=== PATIENT | female | born 1965 | race Caucasian/White ===

== ENCOUNTER → 2019-05-25 | Outpatient (CLI) | payer OTHER | LOC: CAT 09:12 | DX: E27.9 Disorder of adrenal gland, unspecified (principal); J98.11 Atelectasis; N28.1 Cyst of kidney, acquired; M51.36 Other intervertebral disc degeneration, lumbar region ==

== ENCOUNTER → 2020-08-09 | Outpatient (CLI) | payer OTHER | LOC: LAB 11:08 | PROVIDERS: ATTEND Nurse Practitioner | DX: R40.0 Somnolence (principal); Z20.822 Contact with and (suspected) exposure to COVID-19 ==

== ENCOUNTER → 2020-11-17 | Outpatient (CLI) | payer OTHER | LOC: LAB 07:55 | PROVIDERS: ATTEND Nurse Practitioner | DX: Z01.812 Encounter for preprocedural laboratory examination (principal); Z20.822 Contact with and (suspected) exposure to COVID-19 ==

== ENCOUNTER → 2020-11-20 | Outpatient (CLI) | payer OTHER ==
--- NOTE | 2020-11-23 06:42 | SLE ---
[facility] [place] [address] POLYSOMNOGRAPHY STUDY Name: RASHIDA CORONADO [facility] [id number] Admission: 11/20/20 Attend Phys: Rena Martins DNP Discharge: Date of : 69 Report #: [id number] THIS REPORT FOR: cc: Rena Martins DNP, Mary E. DNP Khan, Aman U. MD ~ DATE OF SERVICE: 11/20/2020 SLEEP STUDY ATTENDING PHYSICIAN: Rena Martins. Patient is 55 years old who weighs 165 pounds with a BMI of 28.3. The patient's [place] score was 4. The patient underwent diagnostic sleep study performed at [facility]. During the night study, the patient spent 463 minutes in bed and slept for 122 minutes with a low sleep efficiency of 26%. Sleep latency was 4 minutes with a REM latency of 399 minutes. Sleep architecture showed increased stage 1 sleep, reduced N2 sleep, absent N3 sleep and normal REM sleep. During the night of the study, the patient had 2 obstructive apneas, no mixed apneas and 29 central apneas. The patient also had 10 hypopneas. The patient's AHI was 20 per hour with a REM AHI of 7.7 per hour and a supine AHI of 0 per hour due to lack of supine sleep. EKG monitoring revealed an average heart rate of 81 beats per minute. Occasional PVCs seen. No sustained arrhythmias observed. No clinically significant PLM seen. Nocturnal oximetry study revealed an average oxygen saturation of 96% with the lowest of 78%. Less than 1 minute was spent with oxygen saturation of less than 90%. Due to reduced sleep efficiency, the patient did not meet the split night criteria for CPAP initiation. IMPRESSION: 1. Moderate obstructive sleep apnea at an AHI of 20 per hour. Significantly reduced sleep efficiency can underestimate the severity of sleep apnea. 2. Sleep maintenance insomnia, resulting in a reduced sleep efficiency of 26%. 3. No clinically significant nocturnal hypoxia. 4. No clinically significant periodic limb movements. [facility] [address] [place] [address] POLYSOMNOGRAPHY STUDY Name: RASHIDA CORONADO [facility] [id number] Admission: 11/20/20 Attend Phys: Rena Martins DNP Discharge: Date of : 69 Report #: [id number] RECOMMENDATIONS: 1. The patient would benefit from return to the sleep lab for CPAP titration study. 2. Once the patient is optimally treated with CPAP, then follow up in 4-6 weeks to assess compliance and to document clinical improvement. 3. If patient's insomnia is chronic, then it should be treated according to the etiology. 4. Avoid [employer] depressants. 5. Cautioned regarding driving until sleep apnea is treated with CPAP. <ELECTRONICALLY SIGNED> By: Larry Oscar MD 11/23/20 [id number] Larry Oscar MD /nt
== END ==
LOC: SLEEPLAB 09:23
PROVIDERS: ATTEND Nurse Practitioner
DX: G47.33 Obstructive sleep apnea (adult) (pediatric) (principal)